=== PATIENT | female | born 1940 | race Asian ===

== ENCOUNTER 2017-02-08 00:41 | Emergency (ER) | payer OTHER ==
[~2017-02-08] VITALS: Ht 157.5 cm; Wt 54.4 kg
[~2017-02-08 00:41] MED LIST: ENAL20TA PO; SERT25TA PO; SIMV10TA6 PO
[2017-02-08 00:45] VITALS: BP 132/78; PULSE 88; RESP 18; TEMP 98.2; O2SAT 98
--- NOTE | 2017-02-08 00:45 | NUR ---
Patient to ER bed 04 to gown for evaluation. Side rails up. Report given to NISHANT Aguilar.
--- NOTE | 2017-02-08 00:46 | NUR ---
Patient BIB [facility] after having chest pain for over 24 hours. No s/s of distress. placed on the monitor and will continue to monitor patient.
[2017-02-08] MEDS ORDERED: NACL 0.9% 1,000 ML IV ONE (01:00)
[2017-02-08] MEDS ORDERED: ASPIRIN 81 MG TAB.CHEW PO ONE (01:00)
[2017-02-08] MEDS ORDERED: KETOROLAC TROMETHAMINE 30 MG VIAL IVP ONE (01:15)
--- NOTE | 2017-02-08 01:20 | NUR ---
ER at bedside examining patient.
[2017-02-08 01:31] LABS: BASOPHILS # (AUTO) 0.1 K/uL (0.0-0.2); BASOPHILS % (AUTO) 0.9 % (0.0-2.0); EOSINOPHILS # (AUTO) 0.1 K/uL (0.0-0.4); HEMATOCRIT 38.1 % (36-48); HEMOGLOBIN 13.3 g/dL (12.0-16.0); LYMPHOCYTES # (AUTO) 1.3 K/uL (1.0-5.5); LYMPHOCYTES % (AUTO) 22.7 % (20.5-51.5); MEAN CORPUSCULAR HEMOGLOBIN 32 pg (27-31); MEAN CORPUSCULAR HGB CONC 35 % (32-36); MEAN CORPUSCULAR VOLUME 93 fL (79.0-98.0); MONOCYTES # (AUTO) 0.6 K/uL (0.0-1.0); MONOCYTES % (AUTO) 9.8 % (1.7-9.3); NEUTROPHILS # (AUTO) 3.8 K/uL (1.8-7.7); NEUTROPHILS % (AUTO) 65.6 % (40.0-70.0); PLATELET COUNT (AUTO) 217 K/uL (130-430); RED CELL DISTRIBUTION WIDTH 12.2 % (9.0-15.0); WHITE BLOOD COUNT (AUTO) 5.9 K/uL (4.8-10.8)
[2017-02-08 01:48] LABS: INR 0.9 (0.8-1.2); PROTHROMBIN TIME 9.9 SECS (9.5-12.5)
[2017-02-08 01:53] LABS: ANION GAP 3 (5-15); CHLORIDE 99 mmol/L (98-107); GLUCOSE 108 mg/dL (70-99); POTASSIUM 3.7 mmol/L (3.5-5.1); SODIUM SERUM 133 mmol/L (136-145); UREA NITROGEN, BLOOD 13 mg/dL (8-21)
[2017-02-08 01:57] LABS: ALANINE AMINOTRANSFERASE 23 U/L (12-78); ALBUMIN 3.8 g/dL (3.4-4.8); ASPARTATE AMINOTRANSFERASE 26 U/L (10-37); TOTAL BILIRUBIN 0.3 mg/dL (0.0-1.0); TOTAL PROTEIN, SERUM 7.4 g/dL (6.4-8.3)
[2017-02-08 02:21] LABS: BILIRUBIN,URINE NEGATIVE (NEGATIVE); BLOOD, URINE 1+ (NEGATIVE); CLARITY/URINE CLEAR (CLEAR); COLOR,URINE YELLOW (YELLOW); GLUCOSE,URINE NEGATIVE (NEGATIVE); KETONES,URINE NEGATIVE (NEGATIVE); LEUKOCYTE ESTERASE ,URINE NEGATIVE (NEGATIVE); NITRITE, URINE NEGATIVE (NEGATIVE); PROTEIN URINE NEGATIVE (NEGATIVE); UROBILINOGEN,URINE 0.2 (0.2-1.0)
[2017-02-08 02:41] LABS: BACTERIA,URINE RARE /HPF (None Seen); MUCUS,URINE None Seen /LPF (None Seen); RBC,URINE 0-3 /HPF (0-3); WBC,URINE 0-3 /HPF (0-3)
[2017-02-08 03:01] VITALS: BP 131/76; PULSE 84; RESP 17; TEMP 98.2; O2SAT 97
--- NOTE | 2017-02-08 03:01 | NUR ---
Patient given written and verbal discharge instructions and verbalizes understanding. ER MD Parsons discussed with patient the results and treatment provided. Patient in stable condition. ID arm band removed. IV catheter removed intact and dressing applied, no active bleeding. Rx of motrin & promethazine/codeine given. Patient educated on pain management and to follow up with PMD. Pain Scale 0/10. Opportunity for questions provided and answered.
== END 2017-02-08 03:01 | disposition home or self-care (01) ==
LOC: SED 00:41
DX: J06.9 Acute upper respiratory infection, unspecified (principal); R07.89 Other chest pain; I10 Essential (primary) hypertension; E78.00 Pure hypercholesterolemia, unspecified; Z86.73 Personal history of transient ischemic attack (TIA), and cerebral infarction without residual deficits
CPT/HCPCS: 36415; 71010; 80053; 81000; 83605; 84484; 85025; 85610; 85730; 87040; 93005; 96361; 96374; 99285; J1885; J7030

== ENCOUNTER 2019-01-26 08:45 | Emergency (ER) | payer OTHER ==
[~2019-01-26] VITALS: Ht 165.1 cm; Wt 54.4 kg
[~2019-01-26 08:45] MED LIST changes: -SERT25TA PO
[2019-01-26 08:56] VITALS: BP_SYST 157
[2019-01-26 09:24] VITALS: BP_SYST 157
== END 2019-01-26 09:24 | disposition home or self-care (01) ==
LOC: SED 08:45
DX: F43.9 Reaction to severe stress, unspecified (principal); I10 Essential (primary) hypertension; E78.00 Pure hypercholesterolemia, unspecified; Z79.899 Other long term (current) drug therapy
CPT/HCPCS: 99281

== ENCOUNTER 2020-09-16 08:01 | Emergency (ER) | payer OTHER ==
[~2020-09-16] VITALS: Ht 165.1 cm; Wt 55.8 kg
[~2020-09-16 08:01] MED LIST changes: -ENAL20TA PO; +ENAL20TA18 PO; -SIMV10TA6 PO; +SIMV10TA97 PO
[2020-09-16 08:17] VITALS: BP_SYST 165
--- NOTE | 2020-09-16 08:22 | NUR ---
Placed in room 2. Placed on youth nutritional monitor, blood pressure machine and pulse oximeter. To gown for exam. Side rails up. Report given to NISHANT Arce.
--- NOTE | 2020-09-16 08:30 | NUR ---
AT BEDSIDE ASSESSING PT.
--- NOTE | 2020-09-16 08:49 | NUR ---
X-ray done at bedside as ordered by Dr. Waqar Park. Patient tolerated the procedure well.
[2020-09-16 08:52] VITALS: BP_SYST 150
--- NOTE | 2020-09-16 08:53 | NUR ---
PT C/O OF SUDDEN LEFT SIDED CP NON RADATING, AT REST. PT DENEIS ANY SO, HEADACHE AND BLURRY VISON. PT RESPIRATION IS EVEN AND UNLABORED, AAOX4. 20 G IV ESTABLISHED, BLOOD SEND TO LAB.
[2020-09-16 08:54] LABS: BASOPHILS # (AUTO) 0.1 K/uL (0.0-0.2); BASOPHILS % (AUTO) 0.8 % (0.0-2.0); EOSINOPHILS % (AUTO) 0.5 % (0.0-4.0); HEMATOCRIT 41.6 % (36-48); HEMOGLOBIN 13.8 g/dL (12.0-16.0); LYMPHOCYTES # (AUTO) 1.2 K/uL (1.0-5.5); LYMPHOCYTES % (AUTO) 18.1 % (20.5-51.5); MEAN CORPUSCULAR HEMOGLOBIN 32 pg (27-31); MEAN CORPUSCULAR HGB CONC 33 % (32-36); MEAN CORPUSCULAR VOLUME 96 fL (79.0-98.0); MONOCYTES # (AUTO) 0.5 K/uL (0.0-1.0); MONOCYTES % (AUTO) 7.6 % (1.7-9.3); NEUTROPHILS # (AUTO) 4.7 K/uL (1.8-7.7); PLATELET COUNT (AUTO) 225 K/uL (130-430); RED BLOOD CELL COUNT(AUTO) 4.34 MIL/uL (4.2-6.2); RED CELL DISTRIBUTION WIDTH 13.3 % (9.0-15.0); WHITE BLOOD COUNT (AUTO) 6.4 K/uL (4.8-10.8)
[2020-09-16 09:26] LABS: ANION GAP 7 (5-15); CALCIUM 8.7 mg/dL (8.4-11.0); CHLORIDE 98 mmol/L (98-107); CREATININE 0.73 mg/dL (0.55-1.30); GLUCOSE 134 mg/dL (70-99); POTASSIUM 3.4 mmol/L (3.5-5.1); SODIUM SERUM 135 mmol/L (136-145); UREA NITROGEN, BLOOD 13 mg/dL (8-21)
[2020-09-16 09:32] LABS: ALANINE AMINOTRANSFERASE 23 U/L (12-78); ALBUMIN 3.4 g/dL (3.4-4.8); ASPARTATE AMINOTRANSFERASE 27 U/L (10-37); TOTAL BILIRUBIN 0.4 mg/dL (0.0-1.0)
[2020-09-16 10:03] LABS: INR 0.9 (0.8-1.2); PROTHROMBIN TIME 9.3 SECS (9.5-12.5)
--- NOTE | 2020-09-16 10:15 | NUR ---
PT VERBAILZED UNDERSTANDING OF D/C PAPER WORK AND PRESCRIPTION. PT AAOX4, VSS, NAD NOTED. PT EDUCATED TO FOLLOW UP WIT PCP. IV DISCOUNTINUE, RESPIRATION EVEN AND UNLABORED, DENIES ANY CP, SOB, AND HEADACHE.
== END 2020-09-16 10:15 | disposition home or self-care (01) ==
LOC: SED 08:01
DX: R07.82 Intercostal pain (principal); I10 Essential (primary) hypertension; E78.5 Hyperlipidemia, unspecified; E78.00 Pure hypercholesterolemia, unspecified; Z86.73 Personal history of transient ischemic attack (TIA), and cerebral infarction without residual deficits
CPT/HCPCS: 36415; 71045; 80053; 84484; 85025; 85610-TC; 85730-TC; 93005; 99285

== ENCOUNTER 2020-11-11 15:21 | Emergency (ER) | payer OTHER ==
[~2020-11-11] VITALS: Ht 165.1 cm; Wt 54.9 kg
[2020-11-11 15:57] VITALS: BP_SYST 155
--- NOTE | 2020-11-11 18:00 | NUR ---
DR DONOVAN IN TO ASSESS. CALM, ALERT.
[2020-11-11 18:02] LABS: BASOPHILS # (AUTO) 0.1 K/uL (0.0-0.2); BASOPHILS % (AUTO) 0.9 % (0.0-2.0); EOSINOPHILS % (AUTO) 0.5 % (0.0-4.0); HEMATOCRIT 40.8 % (36-48); HEMOGLOBIN 13.6 g/dL (12.0-16.0); LYMPHOCYTES # (AUTO) 1.1 K/uL (1.0-5.5); LYMPHOCYTES % (AUTO) 15.1 % (20.5-51.5); MEAN CORPUSCULAR HEMOGLOBIN 32 pg (27-31); MEAN CORPUSCULAR HGB CONC 33 % (32-36); MEAN CORPUSCULAR VOLUME 96 fL (79.0-98.0); MONOCYTES # (AUTO) 0.6 K/uL (0.0-1.0); MONOCYTES % (AUTO) 8.6 % (1.7-9.3); NEUTROPHILS # (AUTO) 5.3 K/uL (1.8-7.7); NEUTROPHILS % (AUTO) 74.9 % (40.0-70.0); PLATELET COUNT (AUTO) 269 K/uL (130-430); RED BLOOD CELL COUNT(AUTO) 4.26 MIL/uL (4.2-6.2); RED CELL DISTRIBUTION WIDTH 13.1 % (9.0-15.0); WHITE BLOOD COUNT (AUTO) 7.1 K/uL (4.8-10.8)
--- NOTE | 2020-11-11 18:15 | NUR ---
RECEIVED AND MO TO ASSUEM CARE. PT HERE FOR C/O SCHMITT/HTN CALM, ALERT, RESP UNLABORED, SKIN WARM AND DRY. COMMUNICATES CLEARLY IN FULL COMPLETE SENTENCES
[2020-11-11 18:30] LABS: ANION GAP 6 (5-15); CALCIUM 9.2 mg/dL (8.4-11.0); CHLORIDE 100 mmol/L (98-107); CREATININE 0.78 mg/dL (0.55-1.30); GLUCOSE 116 mg/dL (70-99); POTASSIUM 3.9 mmol/L (3.5-5.1); SODIUM SERUM 136 mmol/L (136-145); UREA NITROGEN, BLOOD 16 mg/dL (8-21)
[2020-11-11 18:39] LABS: ALANINE AMINOTRANSFERASE 24 U/L (12-78); ALBUMIN 3.6 g/dL (3.4-4.8); ASPARTATE AMINOTRANSFERASE 23 U/L (10-37); TOTAL BILIRUBIN 0.2 mg/dL (0.0-1.0)
[2020-11-11] MEDS ORDERED: ASPIRIN 81 MG TAB.CHEW ONE (18:53)
[2020-11-11] MEDS ORDERED: KETOROLAC TROMETHAMINE 30 MG VIAL ONE (18:54)
[2020-11-11] MEDS: ASPIRIN 81 MG TAB.CHEW PO ONE (18:56)
[2020-11-11] MEDS: NACL 0.9% 1,000 ML IV ONE (18:57)
[2020-11-11] MEDS: KETOROLAC TROMETHAMINE 60 MG/2 ML VIAL IM ONE (19:06)
[2020-11-11 19:39] VITALS: BP_SYST 147
--- NOTE | 2020-11-11 19:40 | NUR ---
Patient given written and verbal discharge instructions and verbalizes understanding. ER MD discussed with patient the results and treatment provided. Patient in stable condition. ID arm band removed. IV catheter removed intact and dressing applied, no active bleeding. Rx of ASA given. Patient educated on pain management and to follow up with PMD. Pain Scale . Opportunity for questions provided and answered. Medication side effect fact sheet provided.
== END 2020-11-11 19:39 | disposition home or self-care (01) ==
LOC: SED 15:21
DX: R07.89 Other chest pain (principal); I10 Essential (primary) hypertension; E78.00 Pure hypercholesterolemia, unspecified; G45.9 Transient cerebral ischemic attack, unspecified
CPT/HCPCS: 36415; 71045; 80053; 84484; 85025; 93005; 96360; 96361; 96372; 99285; J1885; J7030

== ENCOUNTER 2020-11-21 02:33 | Emergency (ER) | payer OTHER ==
[~2020-11-21] VITALS: Ht 165.1 cm; Wt 54.9 kg
[2020-11-21 02:47] VITALS: BP_SYST 164
[2020-11-21] MEDS: NITROGLYCERIN 0.4 MG TAB.SUBL SL ONE (03:21)
[2020-11-21] MEDS: ASPIRIN 325 MG TABLET PO ONE (03:21)
[2020-11-21] MEDS: ACETAMINOPHEN 500 MG TABLET PO ONE (03:21)
[2020-11-21] MEDS ORDERED: LORazepam 1 MG TABLET ONE (04:15)
[2020-11-21 04:19] LABS: BASOPHILS % (AUTO) 0.6 % (0.0-2.0); EOSINOPHILS % (AUTO) 0.4 % (0.0-4.0); HEMOGLOBIN 12.9 g/dL (12.0-16.0); LYMPHOCYTES # (AUTO) 1.4 K/uL (1.0-5.5); LYMPHOCYTES % (AUTO) 20.1 % (20.5-51.5); MEAN CORPUSCULAR HEMOGLOBIN 32 pg (27-31); MEAN CORPUSCULAR HGB CONC 33 % (32-36); MEAN CORPUSCULAR VOLUME 96 fL (79.0-98.0); MONOCYTES # (AUTO) 0.8 K/uL (0.0-1.0); MONOCYTES % (AUTO) 12.1 % (1.7-9.3); NEUTROPHILS # (AUTO) 4.7 K/uL (1.8-7.7); NEUTROPHILS % (AUTO) 66.8 % (40.0-70.0); PLATELET COUNT (AUTO) 247 K/uL (130-430); RED BLOOD CELL COUNT(AUTO) 4.07 MIL/uL (4.2-6.2); RED CELL DISTRIBUTION WIDTH 13.1 % (9.0-15.0)
[2020-11-21] MEDS: LORazepam 1 MG TABLET PO ONE (04:22)
[2020-11-21 04:33] LABS: ANION GAP 9 (5-15); CALCIUM 8.8 mg/dL (8.4-11.0); CHLORIDE 97 mmol/L (98-107); CREATININE 0.55 mg/dL (0.55-1.30); GLUCOSE 110 mg/dL (70-99); POTASSIUM 3.7 mmol/L (3.5-5.1); SODIUM SERUM 134 mmol/L (136-145); UREA NITROGEN, BLOOD 15 mg/dL (8-21)
[2020-11-21 04:44] LABS: ALANINE AMINOTRANSFERASE 25 U/L (12-78); ALBUMIN 3.6 g/dL (3.4-4.8); ASPARTATE AMINOTRANSFERASE 21 U/L (10-37); TOTAL BILIRUBIN 0.4 mg/dL (0.0-1.0)
[2020-11-21 04:59] VITALS: BP_SYST 144
== END 2020-11-21 04:59 | disposition home or self-care (01) ==
LOC: SED 02:33
DX: M54.2 Cervicalgia (principal)
CPT/HCPCS: 36415; 71045; 80053; 84484; 85025; 99284

== ENCOUNTER 2021-01-25 15:03 | Emergency (ER) | payer OTHER ==
[~2021-01-25] VITALS: Ht 165.1 cm; Wt 53.1 kg
[2021-01-25 15:12] VITALS: BP_SYST 152
[2021-01-25] MEDS ORDERED: FAMOTIDINE PF 20 MG/2 ML VIAL IVP ONE (15:15)
[2021-01-25] MEDS ORDERED: cloNIDine HCL 0.1 MG TABLET PO ONE (15:15)
[2021-01-25] MEDS ORDERED: EPINEPHrine 1 MG/ML AMP IM ONE (15:15)
[2021-01-25] MEDS ORDERED: predniSONE 20 MG TABLET PO ONE (15:15)
[2021-01-25] MEDS ORDERED: FAMOTIDINE 20 MG TABLET PO ONE (15:15)
[2021-01-25] MEDS ORDERED: FAMOTIDINE PF 20 MG/2 ML VIAL ONE (15:37)
[2021-01-25] MEDS ORDERED: PRED20TA PO (15:56)
[2021-01-25] MEDS ORDERED: DIPH25CA83 PO (15:56)
[2021-01-25 16:32] VITALS: BP_SYST 127
== END 2021-01-25 16:29 | disposition home or self-care (01) ==
LOC: SED 15:03
DX: T78.40XA Allergy, unspecified, initial encounter (principal); R06.02 Shortness of breath; E78.00 Pure hypercholesterolemia, unspecified; Z86.73 Personal history of transient ischemic attack (TIA), and cerebral infarction without residual deficits; Z95.0 Presence of cardiac pacemaker; X58.XXXA Exposure to other specified factors, initial encounter
CPT/HCPCS: 96372; 96374; 99284; J0171; J3490; J7512

== ENCOUNTER 2023-05-28 09:50 | Emergency (ER) | payer OTHER ==
[~2023-05-28] VITALS: Ht 162.6 cm; Wt 55.3 kg
[~2023-05-28 09:50] MED LIST changes: +DIPH25CA83 PO; +PRED20TA PO
[2023-05-28 10:05] VITALS: BP_SYST 156; PULSE 66; RESP 18; TEMP 98.3; O2SAT 97
[2023-05-28] MEDS ORDERED: DIPH25CA83 PO (10:11)
[2023-05-28] MEDS ORDERED: PRED20TA PO (10:11)
[2023-05-28] MEDS ORDERED: DIPHENHYDRAMINE INJ 50 MG/ML VIAL IM ONE (10:15)
[2023-05-28] MEDS ORDERED: predniSONE 20 MG TABLET PO ONE (10:15)
[2023-05-28 10:29] VITALS: BP_SYST 119; PULSE 74; RESP 18; TEMP 97.6; O2SAT 98
== END 2023-05-28 10:30 | disposition home or self-care (01) ==
LOC: SED 09:50
DX: R22.0 Localized swelling, mass and lump, head (principal); T46.4X5A Adverse effect of angiotensin-converting-enzyme inhibitors, initial encounter; I10 Essential (primary) hypertension; Z79.899 Other long term (current) drug therapy; Y92.89 Other specified places as the place of occurrence of the external cause
CPT/HCPCS: 99283; 96372; J7512; J1200